=== PATIENT | male | born 1960 | race Caucasian/White ===

== ENCOUNTER 2019-01-30 02:24 | Inpatient (IN) | payer OTHER ==
[~2019-01-30] VITALS: Ht 162.6 cm; Wt 92.6 kg
[2019-01-30] MEDS ORDERED: LACTULOSE 20 GM/30 ML SOLUTION. PO ONE (02:45)
[2019-01-30 02:51] LABS: BASO % 1 % (0-3); EOS # 0.1 x10^3/uL (0.0-0.7); EOS % 1 % (0-3); HEMATOCRIT 35.3 % (39.0-53.0); HEMOGLOBIN 11.7 g/dL (13.0-17.5); LYMPH # 1.5 x10^3/uL (1.0-4.8); LYMPH % 33 % (24-48); MEAN CORPUSCULAR HEMOGLOBIN 33 pg (25-35); MEAN CORPUSCULAR HGB CONC 33 g/dL (31-37); MEAN CORPUSCULAR VOLUME 99 fL (79-100); MONO # 0.5 x10^3/uL (0.0-1.1); MONO % 12 % (0-9); NEUT # 2.4 x10^3uL (1.8-7.7); NEUT % 53 % (31-73); PLATELET COUNT 85 x10^3/uL (140-400); RED BLOOD COUNT 3.58 x10^6/uL (4.30-5.70); RED CELL DISTRIBUTION WIDTH 15.5 % (11.5-14.5); WHITE BLOOD COUNT 4.6 x10^3/uL (4.0-11.0)
[2019-01-30 02:58] LABS: CREATININE 0.9 mg/dL (0.7-1.3); GFR 87.3; POTASSIUM 4.1 mmol/L (3.5-5.1)
[2019-01-30 03:01] LABS: PROTHROMBIN TIME PATIENT 18.3 SEC (11.7-14.0)
[2019-01-30 03:03] LABS: ALBUMIN 2.6 g/dL (3.4-5.0); ALBUMIN/GLOBULIN RATIO 0.6 (1.0-1.7); MAGNESIUM 1.9 mg/dL (1.8-2.4); TOTAL BILIRUBIN 2.7 mg/dL (0.2-1.0); TOTAL PROTEIN 7.2 g/dL (6.4-8.2)
--- NOTE | 2019-01-30 04:39 | PHYS DOC ---
Past Medical History Past Medical History: Alcoholism, Unknown, Other Additional Past Medical Histor: liver disease, hep c, ESLD, variceal bleed Additional Past Surgical Histo: unable to assess Alcohol Use: Sober Social History Narrative: unknown Adult General Chief Complaint Chief Complaint: ALTERED MENTAL STATUS [facility] HPI Patient is a 58-year-old male who presents from halfway with report of altered mental status. Blood work had been sent to [facility] and patient's ammonia level found to be 132. Unable to obtain additional history due to patient having altered mental status. Review of Systems Review of Systems Constitutional: No reported fever or chills [] Cardiovascular: No additional information not addressed in HPI [] GI: No reported vomiting or diarrhea [] Neurologic: Positive mental status changes [] Unable to fully assess review of systems due to altered mental status. Current Medications Current Medications Current Medications Medications (Trade) Dose Ordered Sig/Walter Start Time Stop Time Status Last Admin Dose Admin Lactulose (Lactulose) 30 gm 1X ONCE 01/30/19 02:45 01/30/19 02:46 DC 01/30/19 02:58 30 GM Lorazepam (Ativan) 2 mg 1X ONCE 01/30/19 03:15 01/30/19 03:16 DC 01/30/19 03:33 2 MG Allergies Allergies Allergies Coded Allergies Type Severity Reaction Last Updated Verified No Known Drug Allergies 01/30/19 No Physical Exam Physical Exam Constitutional: Well developed, well nourished, no acute distress, non-toxic appearance. [] HENT: Normocephalic, atraumatic, bilateral external ears normal, oropharynx moist, no oral exudates, nose normal. [] Eyes: PERRLA, EOMI, conjunctiva normal, no discharge. [] Neck: Normal range of motion, no tenderness, supple, no stridor. [] Cardiovascular:Heart rate regular rhythm, no murmur [] Lungs & Thorax: Bilateral breath sounds clear to auscultation [] Abdomen: Bowel sounds normal, soft, no tenderness, no masses, no pulsatile masses. [] Skin: Warm, dry, no erythema, no rash. [] Back: No tenderness, no CVA tenderness. [] Extremities: No tenderness, no cyanosis, no clubbing, ROM intact, no edema. [] Neurologic: Alert and oriented X 3, normal motor function, normal sensory function, no focal deficits noted. [] Psychologic: Affect normal, judgement normal, mood normal. [] Current Patient Data Vital Signs Vital Signs Date Time Temp Pulse Resp B/P (MAP) Pulse Ox O2 Delivery O2 Flow Rate FiO2 01/30/19 02:25 98.1 90 24 127/80 (96) 100 Room Air 98.1 Lab Values Laboratory Tests Test 01/30/19 02:30 White Blood Count 4.6 x10^3/uL (4.0-11.0) Red Blood Count 3.58 x10^6/uL (4.30-5.70) L Hemoglobin 11.7 g/dL (13.0-17.5) L Hematocrit 35.3 % (39.0-53.0) L Mean Corpuscular Volume 99 fL (79-100) Mean Corpuscular Hemoglobin 33 pg (25-35) Mean Corpuscular Hemoglobin Concent 33 g/dL (31-37) Red Cell Distribution Width 15.5 % (11.5-14.5) H Platelet Count 85 x10^3/uL (140-400) L Neutrophils (%) (Auto) 53 % (31-73) Lymphocytes (%) (Auto) 33 % (24-48) Monocytes (%) (Auto) 12 % (0-9) H Eosinophils (%) (Auto) 1 % (0-3) Basophils (%) (Auto) 1 % (0-3) Neutrophils # (Auto) 2.4 x10^3uL (1.8-7.7) Lymphocytes # (Auto) 1.5 x10^3/uL (1.0-4.8) Monocytes # (Auto) 0.5 x10^3/uL (0.0-1.1) Eosinophils # (Auto) 0.1 x10^3/uL (0.0-0.7) Basophils # (Auto) 0.0 x10^3/uL (0.0-0.2) Prothrombin Time 18.3 SEC (11.7-14.0) H Prothrombin Time INR 1.6 (0.8-1.1) H Sodium Level 147 mmol/L (136-145) H Potassium Level 4.1 mmol/L (3.5-5.1) Chloride Level 111 mmol/L (98-107) H Carbon Dioxide Level 27 mmol/L (21-32) Anion Gap 9 (6-14) Blood Urea Nitrogen 11 mg/dL (8-26) Creatinine 0.9 mg/dL (0.7-1.3) Estimated GFR (Cockcroft-Gault) 87.3 BUN/Creatinine Ratio 12 (6-20) Glucose Level 103 mg/dL (70-99) H Calcium Level 9.0 mg/dL (8.5-10.1) Magnesium Level 1.9 mg/dL (1.8-2.4) Total Bilirubin 2.7 mg/dL (0.2-1.0) H Aspartate Amino Transferase (AST) 64 U/L (15-37) H Alanine Aminotransferase (ALT) 54 U/L (16-63) Alkaline Phosphatase 118 U/L (46-116) H Ammonia 122 mcmol/L (11-34) H Troponin I Quantitative < 0.017 ng/mL (0.000-0.055) KU-Sul-Z-Type Natriuretic Peptide 35 pg/mL (0-124) Total Protein 7.2 g/dL (6.4-8.2) Albumin 2.6 g/dL (3.4-5.0) L Albumin/Globulin Ratio 0.6 (1.0-1.7) L Laboratory Tests 01/30/19 02:30 Laboratory Tests 01/30/19 02:30 EKG EKG [] Radiology/Procedures Radiology/Procedures [] Course & Med Decision Making Course & Med Decision Making Pertinent Labs and Imaging studies reviewed. (See chart for details) [] Dragon Disclaimer Dragon Disclaimer This electronic medical record was generated, in whole or in part, using a voice recognition dictation system. Departure Departure Impression: Primary Impression: Hepatic encephalopathy Disposition: ADMITTED INPATIENT Admitting Physician: Vipin Trent Condition: GOOD Referrals: NO PCP (PCP) MATT BARBOZA Jr. DO Jan 30, 2019 04:39
[2019-01-30] MEDS ORDERED: ONDANSETRON PF 4 MG/2 ML VIAL. IV PRN (04:45)
[2019-01-30] MEDS: IV NORMAL SALINE 1000ML BAG 1,000 ML IV SCH ×4 (06:14→23:24)
--- NOTE | 2019-01-30 06:26 | EKG ---
[facility] [address] [place] [address] Test Date: 2019-01-30 Test Time: 04:55:45 Pat Name: KISHAN CRUM Department: Room: [facility] Gender: M Brokerage Coordinator: : 1960 Requested By: MATT BARBOZA Order Number: [id number] Reading MD: Adrian Sidhu MD Measurements Intervals [place] Rate: 82 P: 54 KS: 132 QRS: 34 QRSD: 84 T: 39 QT: 386 QTc: 454 Interpretive Statements SINUS RHYTHM Electronically Signed On 01-30-2019 17:31:54 CDT by Adrian Sidhu MD
[2019-01-30 07:00] VITALS: BP 120/94
[2019-01-30] MEDS ORDERED: PANT20TA2 PO (07:38)
[2019-01-30] MEDS ORDERED: LACT20SO PO (07:38)
[2019-01-30] MEDS ORDERED: SPIR50TA4 PO (07:38)
[2019-01-30] MEDS ORDERED: FURO40TA4 PO (07:38)
--- NOTE | 2019-01-30 08:00 | NUR ---
The patient, KISHAN CRUM, 58 y/o, M admitted from [facility] due to hepatic encephalopathy. Patient is drowsy, responds to name when called. He is accompanied by 2 guards from the facility. youth nutritional monitor placed; we will continue to monitor.
[2019-01-30] MEDS ORDERED: LACTULOSE for RECTAL 200 GM/300 ML SOLUTION. PR PRN (08:30)
--- NOTE | 2019-01-30 08:34 | PDOC1 ---
History and Physical Date of Admission Date of Admission DATE: 01/30/19 TIME: 08:33 Identification/Chief Complaint Chief Complaint AMS Source Source: Caregiver, Chart review, Patient History of Present Illness History of Present Illness 58-year-old male w/ PMHx cirrhosis - Hep C and alcohol, varices (banding 2007), seizure, depression, s/p TIPS, appendectomy, inguinal hernia hernia who presents from residential with report of altered mental status. Blood work had been sent to [facility] and patient's ammonia level found to be 132. Unable to obtain additional history due to patient having altered mental status. Reviewed [facility] records - also w/ recent lethargy and falls. H/o cirrhosis 2 /2 alcohol and Hep C (genotype 3), s/p TIPS. Past Medical History Cardiovascular: No pertinent hx Pulmonary: No pertinent hx CENTRAL NERVOUS SYSTEM: Carpal Tunnel Syndrome GI: Gastritis Heme/Onc: No pertinent hx Hepatobiliary: Cirrhosis, Hep A/B/C (C) Psych: Addictions Rheumatologic: No pertinent hx Infectious disease: No pertinent hx ENT: No pertinent hx Renal/: No pertinent hx Endocrine: No pertinent hx Dermatology: No pertinent hx Past Surgical History Past Surgical History: Other (TIPS) Family History Family History: Alcohol Abuse Social History Smoke: <1 pack per day ALCOHOL: other (QUIT) Drugs: Marijuana, Crystal meth Current Problem List Problem List Problems Medical Problems: (1) Hepatic encephalopathy Status: Acute Current Medications Current Medications Current Medications Lactulose (Lactulose) 30 gm 1X ONCE PO Last administered on 01/30/19at 02:58; Start 01/30/19 at 02:45; Stop 01/30/19 at 02:46; Status DC Lorazepam (Ativan) 2 mg 1X ONCE IV Last administered on 01/30/19at 03:33; Start 01/30/19 at 03:15; Stop 01/30/19 at 03:16; Status DC Ondansetron HCl (Zofran) 4 mg PRN Q8HRS PRN IV NAUSEA/VOMITING; Start 01/30/19 at 04:45; Stop 01/31/19 at 04:44 Sodium Chloride 1,000 ml @ 125 mls/hr Q8H IV Last administered on 01/30/19at 06 :14; Start 01/30/19 at 04:45; Stop 01/31/19 at 04:44 Furosemide (Lasix) 40 mg DAILY PO ; Start 01/30/19 at 09:00 Lactulose (Lactulose) 30 gm TID PO ; Start 01/30/19 at 09:00 Pantoprazole Sodium (Protonix) 40 mg DAILYAC PO ; Start 01/30/19 at 09:00 Spironolactone (Aldactone) 50 mg DAILY PO ; Start 01/30/19 at 09:00 Lactulose (LACTULOSE 300ML for RECTAL) 200 gm PRN Q6HRS PA ; Start 01/30/19 at 08:30; Status UNV Active Scripts Active Reported Spironolactone 50 Mg Tablet 1 Tab PO DAILY Protonix (Pantoprazole Sodium) 20 Mg Tablet.dr 1 Tab PO DAILY Lactulose 20 Gm/30 Ml Solution 30 Gm PO TID Furosemide 40 Mg Tablet 1 Tab PO DAILY Allergies Allergies: Coded Allergies: No Known Drug Allergies (Unverified , 01/30/19) ROS Review of System Unable to obtain ROS due to encephalopathy Physical Exam General: moderate distress HEENT: Atraumatic, PERRLA, EOMI, Mucous membr. moist/pink Lungs: Clear to auscultation, Normal air movement Heart: S1S2, RRR, no gallops, no murmurs Abdomen: Normal bowel sounds, Soft, No tenderness, No hepatosplenomegaly, No masses Rectal Exam: not examined Extremities: No clubbing, No cyanosis, No edema, Normal pulses, No tenderness/ swelling Skin: No rashes, No breakdown, No significant lesion Neuro: Other (moving all 4 limbs) Vitals Vitals Vital Signs Date Time Temp Pulse Resp B/P (MAP) Pulse Ox O2 Delivery O2 Flow Rate FiO2 01/30/19 07:00 98.0 77 16 120/94 (103) 100 Room Air 98.0 Labs Labs Laboratory Tests Test 01/30/19 02:30 White Blood Count 4.6 x10^3/uL (4.0-11.0) Red Blood Count 3.58 x10^6/uL (4.30-5.70) Hemoglobin 11.7 g/dL (13.0-17.5) Hematocrit 35.3 % (39.0-53.0) Mean Corpuscular Volume 99 fL (79-100) Mean Corpuscular Hemoglobin 33 pg (25-35) Mean Corpuscular Hemoglobin Concent 33 g/dL (31-37) Red Cell Distribution Width 15.5 % (11.5-14.5) Platelet Count 85 x10^3/uL (140-400) Neutrophils (%) (Auto) 53 % (31-73) Lymphocytes (%) (Auto) 33 % (24-48) Monocytes (%) (Auto) 12 % (0-9) Eosinophils (%) (Auto) 1 % (0-3) Basophils (%) (Auto) 1 % (0-3) Neutrophils # (Auto) 2.4 x10^3uL (1.8-7.7) Lymphocytes # (Auto) 1.5 x10^3/uL (1.0-4.8) Monocytes # (Auto) 0.5 x10^3/uL (0.0-1.1) Eosinophils # (Auto) 0.1 x10^3/uL (0.0-0.7) Basophils # (Auto) 0.0 x10^3/uL (0.0-0.2) Prothrombin Time 18.3 SEC (11.7-14.0) Prothromb Time International Ratio 1.6 (0.8-1.1) Sodium Level 147 mmol/L (136-145) Potassium Level 4.1 mmol/L (3.5-5.1) Chloride Level 111 mmol/L (98-107) Carbon Dioxide Level 27 mmol/L (21-32) Anion Gap 9 (6-14) Blood Urea Nitrogen 11 mg/dL (8-26) Creatinine 0.9 mg/dL (0.7-1.3) Estimated GFR (Cockcroft-Gault) 87.3 BUN/Creatinine Ratio 12 (6-20) Glucose Level 103 mg/dL (70-99) Calcium Level 9.0 mg/dL (8.5-10.1) Magnesium Level 1.9 mg/dL (1.8-2.4) Total Bilirubin 2.7 mg/dL (0.2-1.0) Aspartate Amino Transf (AST/SGOT) 64 U/L (15-37) Alanine Aminotransferase (ALT/SGPT) 54 U/L (16-63) Alkaline Phosphatase 118 U/L (46-116) Ammonia 122 mcmol/L (11-34) Troponin I Quantitative < 0.017 ng/mL (0.000-0.055) QA-Tpj-R-Type Natriuretic Peptide 35 pg/mL (0-124) Total Protein 7.2 g/dL (6.4-8.2) Albumin 2.6 g/dL (3.4-5.0) Albumin/Globulin Ratio 0.6 (1.0-1.7) Laboratory Tests Test 01/30/19 02:30 White Blood Count 4.6 x10^3/uL (4.0-11.0) Red Blood Count 3.58 x10^6/uL (4.30-5.70) Hemoglobin 11.7 g/dL (13.0-17.5) Hematocrit 35.3 % (39.0-53.0) Mean Corpuscular Volume 99 fL (79-100) Mean Corpuscular Hemoglobin 33 pg (25-35) Mean Corpuscular Hemoglobin Concent 33 g/dL (31-37) Red Cell Distribution Width 15.5 % (11.5-14.5) Platelet Count 85 x10^3/uL (140-400) Neutrophils (%) (Auto) 53 % (31-73) Lymphocytes (%) (Auto) 33 % (24-48) Monocytes (%) (Auto) 12 % (0-9) Eosinophils (%) (Auto) 1 % (0-3) Basophils (%) (Auto) 1 % (0-3) Neutrophils # (Auto) 2.4 x10^3uL (1.8-7.7) Lymphocytes # (Auto) 1.5 x10^3/uL (1.0-4.8) Monocytes # (Auto) 0.5 x10^3/uL (0.0-1.1) Eosinophils # (Auto) 0.1 x10^3/uL (0.0-0.7) Basophils # (Auto) 0.0 x10^3/uL (0.0-0.2) Prothrombin Time 18.3 SEC (11.7-14.0) Prothromb Time International Ratio 1.6 (0.8-1.1) Sodium Level 147 mmol/L (136-145) Potassium Level 4.1 mmol/L (3.5-5.1) Chloride Level 111 mmol/L (98-107) Carbon Dioxide Level 27 mmol/L (21-32) Anion Gap 9 (6-14) Blood Urea Nitrogen 11 mg/dL (8-26) Creatinine 0.9 mg/dL (0.7-1.3) Estimated GFR (Cockcroft-Gault) 87.3 BUN/Creatinine Ratio 12 (6-20) Glucose Level 103 mg/dL (70-99) Calcium Level 9.0 mg/dL (8.5-10.1) Magnesium Level 1.9 mg/dL (1.8-2.4) Total Bilirubin 2.7 mg/dL (0.2-1.0) Aspartate Amino Transf (AST/SGOT) 64 U/L (15-37) Alanine Aminotransferase (ALT/SGPT) 54 U/L (16-63) Alkaline Phosphatase 118 U/L (46-116) Ammonia 122 mcmol/L (11-34) Troponin I Quantitative < 0.017 ng/mL (0.000-0.055) BB-Mcv-F-Type Natriuretic Peptide 35 pg/mL (0-124) Total Protein 7.2 g/dL (6.4-8.2) Albumin 2.6 g/dL (3.4-5.0) Albumin/Globulin Ratio 0.6 (1.0-1.7) VTE Prophylaxis Ordered VTE Prophylaxis Devices: Yes VTE Pharmacological Prophylaxi: No Assessment/Plan Assessment/Plan A/P: Acute Hepatic encephalopathy - likely from xifaxin loss vs a host of other possibilities. Consult GI. Lactulose TID + xifaxin. Lactulose enemas Cirrhosis (alcohol, Hep C) s/p TIPS - should evaluated TIPS w/ ultrasound. May need variceal staging again soon Anemia - 2/2 liver disease. Monitor thrombocytopenia - monitor, will use SCDs as ppx Coagulopathy - from hep C cirrhosis, monitor FEN - NPO, except meds PPX - SCDs FULL CODE Inpatient for hepatic encephalopathy, will likely be at least 2 midnights. DOLLY SIMENTAL MD Jan 30, 2019 08:34
[2019-01-30] MEDS: PANTOPRAZOLE 40 MG TABLET.DR. PO SCH (10:49)
[2019-01-30] MEDS: FUROSEMIDE 40 MG TABLET. PO SCH (10:49)
[2019-01-30] MEDS: SPIRONOLACTONE 25 MG TABLET PO SCH (10:55)
[2019-01-30] MEDS: LACTULOSE 20 GM/30 ML SOLUTION. PO SCH ×3 (10:55→20:14)
[2019-01-30 11:00] VITALS: BP 141/84
--- NOTE | 2019-01-30 13:22 | NUR ---
Patient had a 6 beat VTAC on the monitor at 1259, no chest pain, electrolytes within normal limits,paged Dr Carlos at 1300. This nurse iwas nstructed to monitor patient.
--- NOTE | 2019-01-30 14:47 | PDOC2 ---
GI CONSULT Reason For Consult: Hepatic encephalopathy HPI: HPI: 58 y/o inmate w/ AMS. Reviewed [facility] records - also w/ recent lethargy and falls. H/o cirrhosis 2/2 alcohol and Hep C (genotype 3, failed Interferon treatment, deemed not a transplant candidate due to ongoing substance abuse), s/ p TIPS. On furosemide, spironolactone, pantoprazole, and lactulose (and previously Xifaxan). Had labs through [facility] - found w/ elevated ammonia (122 here ). No meaningful history from pt this afternoon - guards report he has been agitated and his urine "smelled strong." Was given lactulose here and has stooled since we have seen. PMH: PMH: cirrhosis - Hep C and alcohol, varices (banding 2007), seizure, depression TIPS, appendectomy, inguinal hernia hernia FH: Family History: Other (unable to obtain) Social History: Smoke: <1 pack per day ALCOHOL: other Drugs: Crystal meth ROS: Unable to obtain. Vitals: Vitals: Vital Signs Date Time Temp Pulse Resp B/P (MAP) Pulse Ox O2 Delivery O2 Flow Rate FiO2 01/30/19 11:00 98.1 75 16 141/84 (103) 100 Room Air 98.1 Labs: Labs: Laboratory Tests Test 01/30/19 02:30 White Blood Count 4.6 x10^3/uL (4.0-11.0) Red Blood Count 3.58 x10^6/uL (4.30-5.70) Hemoglobin 11.7 g/dL (13.0-17.5) Hematocrit 35.3 % (39.0-53.0) Mean Corpuscular Volume 99 fL (79-100) Mean Corpuscular Hemoglobin 33 pg (25-35) Mean Corpuscular Hemoglobin Concent 33 g/dL (31-37) Red Cell Distribution Width 15.5 % (11.5-14.5) Platelet Count 85 x10^3/uL (140-400) Neutrophils (%) (Auto) 53 % (31-73) Lymphocytes (%) (Auto) 33 % (24-48) Monocytes (%) (Auto) 12 % (0-9) Eosinophils (%) (Auto) 1 % (0-3) Basophils (%) (Auto) 1 % (0-3) Neutrophils # (Auto) 2.4 x10^3uL (1.8-7.7) Lymphocytes # (Auto) 1.5 x10^3/uL (1.0-4.8) Monocytes # (Auto) 0.5 x10^3/uL (0.0-1.1) Eosinophils # (Auto) 0.1 x10^3/uL (0.0-0.7) Basophils # (Auto) 0.0 x10^3/uL (0.0-0.2) Prothrombin Time 18.3 SEC (11.7-14.0) Prothromb Time International Ratio 1.6 (0.8-1.1) Sodium Level 147 mmol/L (136-145) Potassium Level 4.1 mmol/L (3.5-5.1) Chloride Level 111 mmol/L (98-107) Carbon Dioxide Level 27 mmol/L (21-32) Anion Gap 9 (6-14) Blood Urea Nitrogen 11 mg/dL (8-26) Creatinine 0.9 mg/dL (0.7-1.3) Estimated GFR (Cockcroft-Gault) 87.3 BUN/Creatinine Ratio 12 (6-20) Glucose Level 103 mg/dL (70-99) Calcium Level 9.0 mg/dL (8.5-10.1) Magnesium Level 1.9 mg/dL (1.8-2.4) Total Bilirubin 2.7 mg/dL (0.2-1.0) Aspartate Amino Transf (AST/SGOT) 64 U/L (15-37) Alanine Aminotransferase (ALT/SGPT) 54 U/L (16-63) Alkaline Phosphatase 118 U/L (46-116) Ammonia 122 mcmol/L (11-34) Troponin I Quantitative < 0.017 ng/mL (0.000-0.055) KQ-Nbe-H-Type Natriuretic Peptide 35 pg/mL (0-124) Total Protein 7.2 g/dL (6.4-8.2) Albumin 2.6 g/dL (3.4-5.0) Albumin/Globulin Ratio 0.6 (1.0-1.7) Allergies: Coded Allergies: No Known Drug Allergies (Unverified , 01/30/19) Medications: Current Medications Medications (Trade) Dose Ordered Sig/Walter Route PRN Reason Start Time Stop Time Status Last Admin Dose Admin Lactulose (Lactulose) 30 gm 1X ONCE PO 01/30/19 02:45 01/30/19 02:46 DC 01/30/19 02:58 Lorazepam (Ativan) 2 mg 1X ONCE IV 01/30/19 03:15 01/30/19 03:16 DC 01/30/19 03:33 Sodium Chloride 1,000 ml @ 125 mls/hr Q8H IV 01/30/19 04:45 01/31/19 04:44 01/30/19 06:14 Furosemide (Lasix) 40 mg DAILY PO 01/30/19 09:00 01/30/19 10:49 Lactulose (Lactulose) 30 gm TID PO 01/30/19 09:00 01/30/19 10:55 Pantoprazole Sodium (Protonix) 40 mg DAILYAC PO 01/30/19 09:00 01/30/19 10:49 Spironolactone (Aldactone) 50 mg DAILY PO 01/30/19 09:00 01/30/19 10:55 PE: GEN: seems uncomfortable - holding head, continually moaning HEENT: Atraumatic, PERRL LUNGS: CTAB HEART: RRR ABD: NABS, S/ND/NT EXTREMITY: No edema SKIN: stasis dermatitis BLE NEURO/PSYCH: confused, hyperreflexive A/P: A/P: Hepatic encephalopathy Cirrhosis (alcohol, Hep C) s/p TIPS Anemia, thrombocytopenia, coagulopathy -- ?infection ?tumor Agree w/ lactulose. Check UA and AFP. Check patency of TIPS w/ doppler, also CT C/A/P. GILL RECIO Jan 30, 2019 14:47
[2019-01-30 15:00] VITALS: BP 139/70
--- NOTE | 2019-01-30 16:03 | RAD ---
PQRS Compliance statement: One or more of the following individualized dose reduction techniques were utilized for this examination: 1. Automated exposure control. 2. Adjustment of the mA and/or kV according to patient size. 3. Use of iterative reconstruction technique. Indication:CIRRHOSIS ABD PAIN NO CONTRAST NO PREV TECHNIQUE: CT chest, abdomen and pelviswithout IV contrast with multiplanar reformats. COMPARISON: None FINDINGS: Limited exam due to lack of IV contrast. Heart is normal in size. No pericardial or pleural effusion. Bilateral gynecomastia. No enlarged axillary or mediastinal adenopathy. Evaluation of hilar lymphadenopathy is limited due to lack of IV contrast. Lungs are clear. Chronic fracture deformity seen of the right clavicle. No suspicious bony lesions in the chest. TIPS procedure noted. Morphologic changes of cirrhosis. Spleen is mildly enlarged measuring 16 cm. Noncontrast appearance of the pancreas, adrenals and kidneys within normal limits. Gallstones noted. No pericholecystic fluid. No enlarged retroperitoneal adenopathy. No free pelvic fluid or ascites. Large amount of stool is seen in the colon. The prostate and seminal vesicles show no large mass. Urinary bladder demonstrate no radiopaque stones. No pneumoperitoneum. Multiple perigastric and perisplenic varices are seen. No suspicious bony lesion. Mild anterior wedge-shaped compression deformity seen of the L1 vertebral body most likely chronic. IMPRESSION: Limited exam due to lack of IV contrast. 1. Cirrhosis with evidence of portal venous hypertension. No ascites. 2. Cholelithiasis without imaging evidence of acute cholecystitis. Electronically signed by: Massimo Dbuon DO (01/30/2019 4:00 PM) [facility]
--- NOTE | 2019-01-30 19:29 | RAD ---
LIMITED ABDOMINAL DOPPLER History: Hepatitis C, hepatic encephalopathy Comparison: None. Findings: Multiple grayscale, color, and duplex spectral analysis waveform images directed toward evaluation of TIPS are submitted. Incidental note is made of cholelithiasis. TIPS is patent, velocity of the mid segment about 145 cm/s, 126 cm/s at the portal end and 193 cm/s hepatic end. There is hepatopetal flow present. Main portal vein velocity 115 cm/s. Hepatic artery is patent, velocity 120 cm/s. Main portal vein measured about 1.4 cm and caliber. Left portal vein velocity 47 cm/s. Right portal vein velocity was 61 cm/s. Hepatic veins are patent, hepatofugal flow. No ascites is demonstrated. Impression: 1. TIPS is patent. There is hepatopetal flow. No ascites is demonstrated. Electronically signed by: Aldair Ferro MD (01/30/2019 7:26 PM) [facility]
[2019-01-30 19:53] VITALS: BP 133/80
[2019-01-30 23:00] VITALS: BP 118/58
[2019-01-30] MEDS: traMADol 50 MG TABLET PO PRN (23:23)
[2019-01-31 03:45] VITALS: BP 92/59
[2019-01-31 05:39] LABS: BASO % 1 % (0-3); EOS # 0.1 x10^3/uL (0.0-0.7); EOS % 4 % (0-3); HEMATOCRIT 31.7 % (39.0-53.0); HEMOGLOBIN 11.2 g/dL (13.0-17.5); LYMPH # 1.9 x10^3/uL (1.0-4.8); LYMPH % 53 % (24-48); MEAN CORPUSCULAR HEMOGLOBIN 34 pg (25-35); MEAN CORPUSCULAR HGB CONC 35 g/dL (31-37); MEAN CORPUSCULAR VOLUME 98 fL (79-100); MONO # 0.4 x10^3/uL (0.0-1.1); MONO % 11 % (0-9); NEUT # 1.1 x10^3uL (1.8-7.7); NEUT % 31 % (31-73); PLATELET COUNT 74 x10^3/uL (140-400); RED BLOOD COUNT 3.24 x10^6/uL (4.30-5.70); RED CELL DISTRIBUTION WIDTH 15.1 % (11.5-14.5); WHITE BLOOD COUNT 3.6 x10^3/uL (4.0-11.0)
[2019-01-31 05:45] LABS: PROTHROMBIN TIME PATIENT 20.8 SEC (11.7-14.0)
[2019-01-31 05:58] LABS: ALBUMIN 1.9 g/dL (3.4-5.0); ALBUMIN/GLOBULIN RATIO 0.5 (1.0-1.7); CALCIUM 7.9 mg/dL (8.5-10.1); CREATININE 0.6 mg/dL (0.7-1.3); TOTAL PROTEIN 5.7 g/dL (6.4-8.2)
[2019-01-31 05:59] LABS: GFR 139.4; POTASSIUM 3.5 mmol/L (3.5-5.1); TOTAL BILIRUBIN 2.6 mg/dL (0.2-1.0)
[2019-01-31 07:00] VITALS: BP 106/54
[2019-01-31] MEDS: IV NORMAL SALINE 1000ML BAG 1,000 ML IV SCH (07:30)
[2019-01-31] MEDS: SPIRONOLACTONE 25 MG TABLET PO SCH (09:54)
[2019-01-31] MEDS: FUROSEMIDE 40 MG TABLET. PO SCH (09:54)
[2019-01-31] MEDS: PANTOPRAZOLE 40 MG TABLET.DR. PO SCH (09:55)
[2019-01-31] MEDS: traMADol 50 MG TABLET PO PRN (09:55)
[2019-01-31] MEDS: LACTULOSE 20 GM/30 ML SOLUTION. PO SCH ×3 (09:55→20:19)
[2019-01-31] MEDS ORDERED: LACTULOSE 20 GM/30 ML SOLUTION. PO SCH (10:00)
[2019-01-31 10:56] VITALS: BP 106/61
--- NOTE | 2019-01-31 12:48 | PDOC ---
PROGRESS NOTES Chief Complaint Chief Complaint Acute Hepatic encephalopathy -TIPS patent Advanced liver cirrhosis History hep C status post treatment-Active again?-Follows with [facility] elevated Ammonia, 122 Anemia - 2/2 liver disease. 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, Inmate InciDental cholelithiasis History of Present Illness History of Present Illness He is back to baseline terms of mentation but still slow. Oriented to self and place and a little bit to time Guards at bedside Asks about solid food Ammonia elevated 122 He claims he gets lactulose and other meds in [facility] GI note reviewed, restarted on rifaximin AFP still pending Ultrasound shows patent TIPS Incidental cholelithiasis-I have provided copies of his ultrasound I did touch base in terms of prognosis poor, recurrences of confusion etc. He is looking at getting out of [facility] March 02, 2019, and follows with [facility] for hep C treatment Plan: Continue lactulose, recheck ammonia tomorrow Follow-up AFP Upgrade to GI soft Follow-up [facility] for hep C treatment We'll DC back to [facility] once we have AFP levels and ammonia better and is back to baseline Vitals Vitals Vital Signs Date Time Temp Pulse Resp B/P (MAP) Pulse Ox O2 Delivery O2 Flow Rate FiO2 01/31/19 10:56 97.8 61 20 106/61 (76) 97 Room Air 97.8 Physical Exam General: Oriented X3, Cooperative, moderate distress, Other (slow to speech) Heart: Regular rate, Normal S1, Normal S2 Lungs: Clear Abdomen: Normal bowel sounds, Soft, No tenderness, No hepatosplenomegaly, No masses Extremities: No clubbing, No cyanosis, No edema, Normal pulses, No tenderness/ swelling Skin: No rashes, No breakdown, No significant lesion Labs LABS Laboratory Tests Test 01/31/19 05:17 White Blood Count 3.6 x10^3/uL (4.0-11.0) Red Blood Count 3.24 x10^6/uL (4.30-5.70) Hemoglobin 11.2 g/dL (13.0-17.5) Hematocrit 31.7 % (39.0-53.0) Mean Corpuscular Volume 98 fL (79-100) Mean Corpuscular Hemoglobin 34 pg (25-35) Mean Corpuscular Hemoglobin Concent 35 g/dL (31-37) Red Cell Distribution Width 15.1 % (11.5-14.5) Platelet Count 74 x10^3/uL (140-400) Neutrophils (%) (Auto) 31 % (31-73) Lymphocytes (%) (Auto) 53 % (24-48) Monocytes (%) (Auto) 11 % (0-9) Eosinophils (%) (Auto) 4 % (0-3) Basophils (%) (Auto) 1 % (0-3) Neutrophils # (Auto) 1.1 x10^3uL (1.8-7.7) Lymphocytes # (Auto) 1.9 x10^3/uL (1.0-4.8) Monocytes # (Auto) 0.4 x10^3/uL (0.0-1.1) Eosinophils # (Auto) 0.1 x10^3/uL (0.0-0.7) Basophils # (Auto) 0.0 x10^3/uL (0.0-0.2) Prothrombin Time 20.8 SEC (11.7-14.0) Prothromb Time International Ratio 1.8 (0.8-1.1) Sodium Level 143 mmol/L (136-145) Potassium Level 3.5 mmol/L (3.5-5.1) Chloride Level 112 mmol/L (98-107) Carbon Dioxide Level 22 mmol/L (21-32) Anion Gap 9 (6-14) Blood Urea Nitrogen 8 mg/dL (8-26) Creatinine 0.6 mg/dL (0.7-1.3) Estimated GFR (Cockcroft-Gault) 139.4 BUN/Creatinine Ratio 13 (6-20) Glucose Level 84 mg/dL (70-99) Calcium Level 7.9 mg/dL (8.5-10.1) Total Bilirubin 2.6 mg/dL (0.2-1.0) Aspartate Amino Transf (AST/SGOT) 47 U/L (15-37) Alanine Aminotransferase (ALT/SGPT) 40 U/L (16-63) Alkaline Phosphatase 81 U/L (46-116) Total Protein 5.7 g/dL (6.4-8.2) Albumin 1.9 g/dL (3.4-5.0) Albumin/Globulin Ratio 0.5 (1.0-1.7) Review of Systems Review of Systems A 14 point ROS was completed with the following noted as positive: Other systems reviewed and negative. \CONSTITUTIONAL: No fever or chills EYES: No recent changes SKIN: No rash or itching CARDIOVASCULAR: No chest pain, syncope, palpitations, or edema RESPIRATORY: No SOB or cough GASTROINTESTINAL: No nausea, vomiting or abdominal pain NEUROLOGICAL: No headaches or weakness ENDOCRINE: No cold or heat intolerance GENITOURINARY: No urgency or frequency of urination MUSCULOSKELETAL: No back pain or joint pain LYMPHATICS: No enlarged lymph nodes PSYCHIATRIC: No anxiety or depression Assessment and Plan Assessmemt and Plan Problems Medical Problems: (1) Hepatic encephalopathy Status: Acute Comment Review of Relevant I have reviewed the following items kerwin (where applicable) has been applied. Labs Laboratory Tests Test 01/30/19 02:30 01/30/19 06:30 01/31/19 05:17 White Blood Count 4.6 x10^3/uL (4.0-11.0) 3.6 x10^3/uL (4.0-11.0) Red Blood Count 3.58 x10^6/uL (4.30-5.70) 3.24 x10^6/uL (4.30-5.70) Hemoglobin 11.7 g/dL (13.0-17.5) 11.2 g/dL (13.0-17.5) Hematocrit 35.3 % (39.0-53.0) 31.7 % (39.0-53.0) Mean Corpuscular Volume 99 fL (79-100) 98 fL (79-100) Mean Corpuscular Hemoglobin 33 pg (25-35) 34 pg (25-35) Mean Corpuscular Hemoglobin Concent 33 g/dL (31-37) 35 g/dL (31-37) Red Cell Distribution Width 15.5 % (11.5-14.5) 15.1 % (11.5-14.5) Platelet Count 85 x10^3/uL (140-400) 74 x10^3/uL (140-400) Neutrophils (%) (Auto) 53 % (31-73) 31 % (31-73) Lymphocytes (%) (Auto) 33 % (24-48) 53 % (24-48) Monocytes (%) (Auto) 12 % (0-9) 11 % (0-9) Eosinophils (%) (Auto) 1 % (0-3) 4 % (0-3) Basophils (%) (Auto) 1 % (0-3) 1 % (0-3) Neutrophils # (Auto) 2.4 x10^3uL (1.8-7.7) 1.1 x10^3uL (1.8-7.7) Lymphocytes # (Auto) 1.5 x10^3/uL (1.0-4.8) 1.9 x10^3/uL (1.0-4.8) Monocytes # (Auto) 0.5 x10^3/uL (0.0-1.1) 0.4 x10^3/uL (0.0-1.1) Eosinophils # (Auto) 0.1 x10^3/uL (0.0-0.7) 0.1 x10^3/uL (0.0-0.7) Basophils # (Auto) 0.0 x10^3/uL (0.0-0.2) 0.0 x10^3/uL (0.0-0.2) Prothrombin Time 18.3 SEC (11.7-14.0) 20.8 SEC (11.7-14.0) Prothromb Time International Ratio 1.6 (0.8-1.1) 1.8 (0.8-1.1) Sodium Level 147 mmol/L (136-145) 143 mmol/L (136-145) Potassium Level 4.1 mmol/L (3.5-5.1) 3.5 mmol/L (3.5-5.1) Chloride Level 111 mmol/L (98-107) 112 mmol/L (98-107) Carbon Dioxide Level 27 mmol/L (21-32) 22 mmol/L (21-32) Anion Gap 9 (6-14) 9 (6-14) Blood Urea Nitrogen 11 mg/dL (8-26) 8 mg/dL (8-26) Creatinine 0.9 mg/dL (0.7-1.3) 0.6 mg/dL (0.7-1.3) Estimated GFR (Cockcroft-Gault) 87.3 139.4 BUN/Creatinine Ratio 12 (6-20) 13 (6-20) Glucose Level 103 mg/dL (70-99) 84 mg/dL (70-99) Calcium Level 9.0 mg/dL (8.5-10.1) 7.9 mg/dL (8.5-10.1) Magnesium Level 1.9 mg/dL (1.8-2.4) Total Bilirubin 2.7 mg/dL (0.2-1.0) 2.6 mg/dL (0.2-1.0) Aspartate Amino Transf (AST/SGOT) 64 U/L (15-37) 47 U/L (15-37) Alanine Aminotransferase (ALT/SGPT) 54 U/L (16-63) 40 U/L (16-63) Alkaline Phosphatase 118 U/L (46-116) 81 U/L (46-116) Ammonia 122 mcmol/L (11-34) Troponin I Quantitative < 0.017 ng/mL (0.000-0.055) JI-Nqb-D-Type Natriuretic Peptide 35 pg/mL (0-124) Total Protein 7.2 g/dL (6.4-8.2) 5.7 g/dL (6.4-8.2) Albumin 2.6 g/dL (3.4-5.0) 1.9 g/dL (3.4-5.0) Albumin/Globulin Ratio 0.6 (1.0-1.7) 0.5 (1.0-1.7) Tumor Marker Alpha Fetoprotein 3.0 ng/mL (0.0-8.3) Nasal Screen MRSA (PCR) Negative (Negative) Laboratory Tests Test 01/31/19 05:17 White Blood Count 3.6 x10^3/uL (4.0-11.0) Red Blood Count 3.24 x10^6/uL (4.30-5.70) Hemoglobin 11.2 g/dL (13.0-17.5) Hematocrit 31.7 % (39.0-53.0) Mean Corpuscular Volume 98 fL (79-100) Mean Corpuscular Hemoglobin 34 pg (25-35) Mean Corpuscular Hemoglobin Concent 35 g/dL (31-37) Red Cell Distribution Width 15.1 % (11.5-14.5) Platelet Count 74 x10^3/uL (140-400) Neutrophils (%) (Auto) 31 % (31-73) Lymphocytes (%) (Auto) 53 % (24-48) Monocytes (%) (Auto) 11 % (0-9) Eosinophils (%) (Auto) 4 % (0-3) Basophils (%) (Auto) 1 % (0-3) Neutrophils # (Auto) 1.1 x10^3uL (1.8-7.7) Lymphocytes # (Auto) 1.9 x10^3/uL (1.0-4.8) Monocytes # (Auto) 0.4 x10^3/uL (0.0-1.1) Eosinophils # (Auto) 0.1 x10^3/uL (0.0-0.7) Basophils # (Auto) 0.0 x10^3/uL (0.0-0.2) Prothrombin Time 20.8 SEC (11.7-14.0) Prothromb Time International Ratio 1.8 (0.8-1.1) Sodium Level 143 mmol/L (136-145) Potassium Level 3.5 mmol/L (3.5-5.1) Chloride Level 112 mmol/L (98-107) Carbon Dioxide Level 22 mmol/L (21-32) Anion Gap 9 (6-14) Blood Urea Nitrogen 8 mg/dL (8-26) Creatinine 0.6 mg/dL (0.7-1.3) Estimated GFR (Cockcroft-Gault) 139.4 BUN/Creatinine Ratio 13 (6-20) Glucose Level 84 mg/dL (70-99) Calcium Level 7.9 mg/dL (8.5-10.1) Total Bilirubin 2.6 mg/dL (0.2-1.0) Aspartate Amino Transf (AST/SGOT) 47 U/L (15-37) Alanine Aminotransferase (ALT/SGPT) 40 U/L (16-63) Alkaline Phosphatase 81 U/L (46-116) Total Protein 5.7 g/dL (6.4-8.2) Albumin 1.9 g/dL (3.4-5.0) Albumin/Globulin Ratio 0.5 (1.0-1.7) Medications Current Medications Lactulose (Lactulose) 30 gm 1X ONCE PO Last administered on 01/30/19at 02:58; Start 01/30/19 at 02:45; Stop 3/22/19 at 02:46; Status DC Lorazepam (Ativan) 2 mg 1X ONCE IV Last administered on 01/30/19 03:33; Start 01/30/19 at 03:15; Stop 01/30/19 at 03:16; Status DC Ondansetron HCl (Zofran) 4 mg PRN Q8HRS PRN IV NAUSEA/VOMITING; Start 01/30/19 at 04:45; Stop 01/31/19 at 04:44; Status DC Sodium Chloride 1,000 ml @ 125 mls/hr Q8H IV Last administered on 01/30/19 20 :14; Start 01/30/19 at 04:45; Stop 01/31/19 at 04:44; Status DC Furosemide (Lasix) 40 mg DAILY PO Last administered on 01/31/19 09:54; Start 01/30/19 at 09:00 Lactulose (Lactulose) 30 gm TID PO Last administered on 01/31/19 09:55; Start 01/30/19 at 09:00 Pantoprazole Sodium (Protonix) 40 mg DAILYAC PO Last administered on 01/31/19 09:55; Start 01/30/19 at 09:00 Spironolactone (Aldactone) 50 mg DAILY PO Last administered on 01/31/19 09:54 ; Start 01/30/19 at 09:00 Lactulose (LACTULOSE 300ML for RECTAL) 200 gm PRN Q6HRS PRN SC ELEVATED AMMONIA ; Start 01/30/19 at 08:30 Lorazepam (Ativan) 1 mg 1X ONCE IV Last administered on 01/30/19 17:33; Start 01/30/19 at 17:30; Stop 01/30/19 at 17:31; Status DC Lorazepam (Ativan) 1 mg 1X PRN PRN IV ANXIETY Last administered on 01/30/19 17 :44; Start 01/30/19 at 17:00 Sodium Chloride 1,000 ml @ 100 mls/hr Q10H IV Last administered on 01/31/19 07:30; Start 01/30/19 at 23:15 Lorazepam (Ativan) 1 mg PRN Q4HRS PRN IV ANXIETY / AGITATION; Start 01/30/19 at 23:15 Tramadol HCl (Ultram) 50 mg PRN Q6HRS PRN PO PAIN Last administered on at 09:55; Start 01/30/19 at 23:15 Lactulose (Lactulose) 20 gm QID PO ; Start 01/31/19 at 10:00 Active Scripts Active Reported Spironolactone 50 Mg Tablet 1 Tab PO DAILY Protonix (Pantoprazole Sodium) 20 Mg Tablet.dr 1 Tab PO DAILY Lactulose 20 Gm/30 Ml Solution 30 Gm PO TID Furosemide 40 Mg Tablet 1 Tab PO DAILY Vitals/I & O Vital Sign - Last 24 Hours 01/30/19 01/30/19 01/30/19 01/30/19 15:00 19:53 20:00 23:00 Temp 97.9 98.6 98.6 97.9 98.6 98.6 Pulse 79 82 73 Resp 16 16 16 B/P (MAP) 139/70 (93) 133/80 (97) 118/58 (78) Pulse Ox 99 100 100 O2 Delivery Room Air Room Air Room Air Room Air 01/30/19 01/31/19 01/31/19 01/31/19 23:23 03:45 07:00 08:00 Temp 98.3 97.5 98.3 97.5 Pulse 80 56 Resp 20 16 16 B/P (MAP) 92/59 (70) 106/54 (71) Pulse Ox 98 96 O2 Delivery Room Air Room Air Room Air Room Air 01/31/19 01/31/19 01/31/19 09:55 10:55 10:56 Temp 97.8 97.8 Pulse 61 Resp 17 18 20 B/P (MAP) 106/61 (76) Pulse Ox 97 O2 Delivery Room Air Room Air Room Air Intake and Output 01/30/19 01/30/19 01/31/19 15:00 23:00 07:00 Intake Total 0 ml 800 ml Output Total 600 ml Balance 0 ml -600 ml 800 ml ALONDRA TRIPATHI MD Jan 31, 2019 12:48
[2019-01-31] MEDS ORDERED: ONDANSETRON PF 4 MG/2 ML VIAL. IV PRN (13:00)
[2019-01-31] MEDS ORDERED: ONDANSETRON ODT 4 MG TAB.RAPDIS. PO PRN (13:00)
--- NOTE | 2019-01-31 14:33 | PDOC ---
G I PROGRESS NOTE Reason for Follow-up Cirrhosis/confusion Subjective Patient still confused Physical Exam Lungs clear CV S1 S2 ABD +BS, soft, mildly distended Review of Relevant I have reviewed the following items kerwin (where applicable) has been applied. Labs Laboratory Tests Test 01/30/19 02:30 01/30/19 06:30 01/31/19 05:17 White Blood Count 4.6 x10^3/uL (4.0-11.0) 3.6 x10^3/uL (4.0-11.0) Red Blood Count 3.58 x10^6/uL (4.30-5.70) 3.24 x10^6/uL (4.30-5.70) Hemoglobin 11.7 g/dL (13.0-17.5) 11.2 g/dL (13.0-17.5) Hematocrit 35.3 % (39.0-53.0) 31.7 % (39.0-53.0) Mean Corpuscular Volume 99 fL (79-100) 98 fL (79-100) Mean Corpuscular Hemoglobin 33 pg (25-35) 34 pg (25-35) Mean Corpuscular Hemoglobin Concent 33 g/dL (31-37) 35 g/dL (31-37) Red Cell Distribution Width 15.5 % (11.5-14.5) 15.1 % (11.5-14.5) Platelet Count 85 x10^3/uL (140-400) 74 x10^3/uL (140-400) Neutrophils (%) (Auto) 53 % (31-73) 31 % (31-73) Lymphocytes (%) (Auto) 33 % (24-48) 53 % (24-48) Monocytes (%) (Auto) 12 % (0-9) 11 % (0-9) Eosinophils (%) (Auto) 1 % (0-3) 4 % (0-3) Basophils (%) (Auto) 1 % (0-3) 1 % (0-3) Neutrophils # (Auto) 2.4 x10^3uL (1.8-7.7) 1.1 x10^3uL (1.8-7.7) Lymphocytes # (Auto) 1.5 x10^3/uL (1.0-4.8) 1.9 x10^3/uL (1.0-4.8) Monocytes # (Auto) 0.5 x10^3/uL (0.0-1.1) 0.4 x10^3/uL (0.0-1.1) Eosinophils # (Auto) 0.1 x10^3/uL (0.0-0.7) 0.1 x10^3/uL (0.0-0.7) Basophils # (Auto) 0.0 x10^3/uL (0.0-0.2) 0.0 x10^3/uL (0.0-0.2) Prothrombin Time 18.3 SEC (11.7-14.0) 20.8 SEC (11.7-14.0) Prothromb Time International Ratio 1.6 (0.8-1.1) 1.8 (0.8-1.1) Sodium Level 147 mmol/L (136-145) 143 mmol/L (136-145) Potassium Level 4.1 mmol/L (3.5-5.1) 3.5 mmol/L (3.5-5.1) Chloride Level 111 mmol/L (98-107) 112 mmol/L (98-107) Carbon Dioxide Level 27 mmol/L (21-32) 22 mmol/L (21-32) Anion Gap 9 (6-14) 9 (6-14) Blood Urea Nitrogen 11 mg/dL (8-26) 8 mg/dL (8-26) Creatinine 0.9 mg/dL (0.7-1.3) 0.6 mg/dL (0.7-1.3) Estimated GFR (Cockcroft-Gault) 87.3 139.4 BUN/Creatinine Ratio 12 (6-20) 13 (6-20) Glucose Level 103 mg/dL (70-99) 84 mg/dL (70-99) Calcium Level 9.0 mg/dL (8.5-10.1) 7.9 mg/dL (8.5-10.1) Magnesium Level 1.9 mg/dL (1.8-2.4) Total Bilirubin 2.7 mg/dL (0.2-1.0) 2.6 mg/dL (0.2-1.0) Aspartate Amino Transf (AST/SGOT) 64 U/L (15-37) 47 U/L (15-37) Alanine Aminotransferase (ALT/SGPT) 54 U/L (16-63) 40 U/L (16-63) Alkaline Phosphatase 118 U/L (46-116) 81 U/L (46-116) Ammonia 122 mcmol/L (11-34) Troponin I Quantitative < 0.017 ng/mL (0.000-0.055) KV-Dsv-V-Type Natriuretic Peptide 35 pg/mL (0-124) Total Protein 7.2 g/dL (6.4-8.2) 5.7 g/dL (6.4-8.2) Albumin 2.6 g/dL (3.4-5.0) 1.9 g/dL (3.4-5.0) Albumin/Globulin Ratio 0.6 (1.0-1.7) 0.5 (1.0-1.7) Tumor Marker Alpha Fetoprotein 3.0 ng/mL (0.0-8.3) Nasal Screen MRSA (PCR) Negative (Negative) Laboratory Tests Test 01/31/19 05:17 White Blood Count 3.6 x10^3/uL (4.0-11.0) Red Blood Count 3.24 x10^6/uL (4.30-5.70) Hemoglobin 11.2 g/dL (13.0-17.5) Hematocrit 31.7 % (39.0-53.0) Mean Corpuscular Volume 98 fL (79-100) Mean Corpuscular Hemoglobin 34 pg (25-35) Mean Corpuscular Hemoglobin Concent 35 g/dL (31-37) Red Cell Distribution Width 15.1 % (11.5-14.5) Platelet Count 74 x10^3/uL (140-400) Neutrophils (%) (Auto) 31 % (31-73) Lymphocytes (%) (Auto) 53 % (24-48) Monocytes (%) (Auto) 11 % (0-9) Eosinophils (%) (Auto) 4 % (0-3) Basophils (%) (Auto) 1 % (0-3) Neutrophils # (Auto) 1.1 x10^3uL (1.8-7.7) Lymphocytes # (Auto) 1.9 x10^3/uL (1.0-4.8) Monocytes # (Auto) 0.4 x10^3/uL (0.0-1.1) Eosinophils # (Auto) 0.1 x10^3/uL (0.0-0.7) Basophils # (Auto) 0.0 x10^3/uL (0.0-0.2) Prothrombin Time 20.8 SEC (11.7-14.0) Prothromb Time International Ratio 1.8 (0.8-1.1) Sodium Level 143 mmol/L (136-145) Potassium Level 3.5 mmol/L (3.5-5.1) Chloride Level 112 mmol/L (98-107) Carbon Dioxide Level 22 mmol/L (21-32) Anion Gap 9 (6-14) Blood Urea Nitrogen 8 mg/dL (8-26) Creatinine 0.6 mg/dL (0.7-1.3) Estimated GFR (Cockcroft-Gault) 139.4 BUN/Creatinine Ratio 13 (6-20) Glucose Level 84 mg/dL (70-99) Calcium Level 7.9 mg/dL (8.5-10.1) Total Bilirubin 2.6 mg/dL (0.2-1.0) Aspartate Amino Transf (AST/SGOT) 47 U/L (15-37) Alanine Aminotransferase (ALT/SGPT) 40 U/L (16-63) Alkaline Phosphatase 81 U/L (46-116) Total Protein 5.7 g/dL (6.4-8.2) Albumin 1.9 g/dL (3.4-5.0) Albumin/Globulin Ratio 0.5 (1.0-1.7) Medications Current Medications Lactulose (Lactulose) 30 gm 1X ONCE PO Last administered on 01/30/19at 02:58; Start 01/30/19 at 02:45; Stop 01/30/19 at 02:46; Status DC Lorazepam (Ativan) 2 mg 1X ONCE IV Last administered on 01/30/19at 03:33; Start 01/30/19 at 03:15; Stop 01/30/19 at 03:16; Status DC Ondansetron HCl (Zofran) 4 mg PRN Q8HRS PRN IV NAUSEA/VOMITING; Start 01/30/19 at 04:45; Stop 01/31/19 at 04:44; Status DC Sodium Chloride 1,000 ml @ 125 mls/hr Q8H IV Last administered on 01/30/19 20 :14; Start 01/30/19 at 04:45; Stop 01/31/19 at 04:44; Status DC Furosemide (Lasix) 40 mg DAILY PO Last administered on 01/31/19 09:54; Start 01/30/19 at 09:00 Lactulose (Lactulose) 30 gm TID PO Last administered on 01/31/19 09:55; Start 01/30/19 at 09:00 Pantoprazole Sodium (Protonix) 40 mg DAILYAC PO Last administered on 01/31/19 09:55; Start 01/30/19 at 09:00 Spironolactone (Aldactone) 50 mg DAILY PO Last administered on 01/31/19 09:54 ; Start 01/30/19 at 09:00 Lactulose (LACTULOSE 300ML for RECTAL) 200 gm PRN Q6HRS PRN OR ELEVATED AMMONIA ; Start 01/30/19 at 08:30 Lorazepam (Ativan) 1 mg 1X ONCE IV Last administered on 01/30/19 17:33; Start 01/30/19 at 17:30; Stop 01/30/19 at 17:31; Status DC Lorazepam (Ativan) 1 mg 1X PRN PRN IV ANXIETY Last administered on 01/30/19at 17 :44; Start 01/30/19 at 17:00 Sodium Chloride 1,000 ml @ 100 mls/hr Q10H IV Last administered on 01/31/19 07:30; Start 01/30/19 at 23:15; Stop 01/31/19 at 12:49; Status DC Lorazepam (Ativan) 1 mg PRN Q4HRS PRN IV ANXIETY / AGITATION; Start 01/30/19 at 23:15 Tramadol HCl (Ultram) 50 mg PRN Q6HRS PRN PO PAIN Last administered on 09:55; Start 01/30/19 at 23:15 Lactulose (Lactulose) 20 gm QID PO ; Start 01/31/19 at 10:00; Stop 01/31/19 at 12:49; Status DC Ondansetron HCl (Zofran) 4 mg PRN Q6HRS PRN IV NAUSEA/VOMITING; Start 01/31/19 at 13:00 Ondansetron HCl (Zofran Odt) 4 mg PRN Q6HRS PRN PO NAUSEA/VOMITING; Start 01/31 at 13:00 Active Scripts Active Reported Spironolactone 50 Mg Tablet 1 Tab PO DAILY Protonix (Pantoprazole Sodium) 20 Mg Tablet.dr 1 Tab PO DAILY Lactulose 20 Gm/30 Ml Solution 30 Gm PO TID Furosemide 40 Mg Tablet 1 Tab PO DAILY Vitals/I & O Vital Sign - Last 24 Hours 01/30/19 01/30/19 01/30/19 01/30/19 15:00 19:53 20:00 23:00 Temp 97.9 98.6 98.6 97.9 98.6 98.6 Pulse 79 82 73 Resp 16 16 16 B/P (MAP) 139/70 (93) 133/80 (97) 118/58 (78) Pulse Ox 99 100 100 O2 Delivery Room Air Room Air Room Air Room Air 01/30/19 01/31/19 01/31/19 01/31/19 23:23 03:45 07:00 08:00 Temp 98.3 97.5 98.3 97.5 Pulse 80 56 Resp 20 16 16 B/P (MAP) 92/59 (70) 106/54 (71) Pulse Ox 98 96 O2 Delivery Room Air Room Air Room Air Room Air 01/31/19 01/31/19 01/31/19 09:55 10:55 10:56 Temp 97.8 97.8 Pulse 61 Resp 17 18 20 B/P (MAP) 106/61 (76) Pulse Ox 97 O2 Delivery Room Air Room Air Room Air Intake and Output 01/30/19 01/30/19 01/31/19 14:59 22:59 06:59 Intake Total 0 ml 800 ml Output Total 600 ml Balance 0 ml -600 ml 800 ml Problem List Problems Medical Problems: (1) Hepatic encephalopathy Status: Acute Assessment Hepatic encephalopathy- with cirrhosis, life expectancy 2 years at best without transplant, medical therapy for now. AKOSUA ANGELA MD Jan 31, 2019 14:33
[2019-01-31 14:41] VITALS: BP 128/69
[2019-01-31 19:15] VITALS: BP 121/79
[2019-01-31 23:39] VITALS: BP 125/68
[2019-02-01 03:37] VITALS: BP 120/67
[2019-02-01 04:01] LABS: BASO % 1 % (0-3); EOS # 0.2 x10^3/uL (0.0-0.7); EOS % 4 % (0-3); HEMATOCRIT 31.8 % (39.0-53.0); HEMOGLOBIN 10.9 g/dL (13.0-17.5); LYMPH # 1.7 x10^3/uL (1.0-4.8); LYMPH % 43 % (24-48); MEAN CORPUSCULAR HEMOGLOBIN 33 pg (25-35); MEAN CORPUSCULAR HGB CONC 34 g/dL (31-37); MEAN CORPUSCULAR VOLUME 98 fL (79-100); MONO # 0.6 x10^3/uL (0.0-1.1); MONO % 14 % (0-9); NEUT # 1.5 x10^3uL (1.8-7.7); NEUT % 38 % (31-73); PLATELET COUNT 79 x10^3/uL (140-400); RED BLOOD COUNT 3.25 x10^6/uL (4.30-5.70); RED CELL DISTRIBUTION WIDTH 15.1 % (11.5-14.5)
[2019-02-01 04:23] LABS: PROTHROMBIN TIME PATIENT 18.7 SEC (11.7-14.0)
[2019-02-01 04:27] LABS: ALBUMIN 1.9 g/dL (3.4-5.0); ALBUMIN/GLOBULIN RATIO 0.5 (1.0-1.7); CALCIUM 7.6 mg/dL (8.5-10.1); CREATININE 0.8 mg/dL (0.7-1.3); POTASSIUM 3.8 mmol/L (3.5-5.1); TOTAL BILIRUBIN 1.6 mg/dL (0.2-1.0); TOTAL PROTEIN 5.8 g/dL (6.4-8.2)
[2019-02-01 07:00] VITALS: BP_SYST 114; BP_SYST 57; BP_DIAS 51; BP_DIAS 57
[2019-02-01] MEDS: PANTOPRAZOLE 40 MG TABLET.DR. PO SCH (09:04)
[2019-02-01] MEDS: LACTULOSE 20 GM/30 ML SOLUTION. PO SCH (09:04)
[2019-02-01] MEDS: FUROSEMIDE 40 MG TABLET. PO SCH (09:05)
[2019-02-01] MEDS: SPIRONOLACTONE 25 MG TABLET PO SCH (09:05)
[2019-02-01 11:00] VITALS: BP 111/58
--- NOTE | 2019-02-01 11:38 | PDOC ---
PROGRESS NOTES Chief Complaint Chief Complaint Acute Hepatic encephalopathy, resolved -TIPS patent Advanced liver cirrhosis History hep C status post treatment-Active again?-Follows with [facility] elevated Ammonia, 122 now 94 NORMAL AFP Anemia - 2/2 liver disease. 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, Inmate InciDental cholelithiasis History of Present Illness History of Present Illness He is back to baseline terms of mentation but still slow. Oriented to self and place and a little bit to time Guards at bedside Ammonia down to 94 from 1-2 on admission Did need an enema yesterday even while on lactulose AFP is normal Ultrasound shows patent TIPS Incidental cholelithiasis- asymptomatic I did touch base in terms of prognosis poor, recurrences of confusion etc. - GI gives a life expectancy of 2 years at its best He is looking at getting out of shelter March 02, 2019, and follows with [facility] for hep C treatment Plan: Continue lactulose, recheck ammonia tomorrow Back to shelter tomorrow-they're able to give lactulose and recheck ammonia levels there Upgrade to GI soft Follow-up [facility] for hep C treatment Vitals Vitals Vital Signs Date Time Temp Pulse Resp B/P (MAP) Pulse Ox O2 Delivery O2 Flow Rate FiO2 02/01/19 11:00 98.2 62 16 111/58 (75) 100 Room Air 98.2 Physical Exam General: Oriented X3, Cooperative, moderate distress, Other (slow to speech) Heart: Regular rate, Normal S1, Normal S2 Lungs: Clear Abdomen: Normal bowel sounds, Soft, No tenderness, No hepatosplenomegaly, No masses Extremities: No clubbing, No cyanosis, No edema, Normal pulses, No tenderness/ swelling Skin: No rashes, No breakdown, No significant lesion Labs LABS Laboratory Tests Test 02/01/19 03:15 White Blood Count 4.0 x10^3/uL (4.0-11.0) Red Blood Count 3.25 x10^6/uL (4.30-5.70) Hemoglobin 10.9 g/dL (13.0-17.5) Hematocrit 31.8 % (39.0-53.0) Mean Corpuscular Volume 98 fL (79-100) Mean Corpuscular Hemoglobin 33 pg (25-35) Mean Corpuscular Hemoglobin Concent 34 g/dL (31-37) Red Cell Distribution Width 15.1 % (11.5-14.5) Platelet Count 79 x10^3/uL (140-400) Neutrophils (%) (Auto) 38 % (31-73) Lymphocytes (%) (Auto) 43 % (24-48) Monocytes (%) (Auto) 14 % (0-9) Eosinophils (%) (Auto) 4 % (0-3) Basophils (%) (Auto) 1 % (0-3) Neutrophils # (Auto) 1.5 x10^3uL (1.8-7.7) Lymphocytes # (Auto) 1.7 x10^3/uL (1.0-4.8) Monocytes # (Auto) 0.6 x10^3/uL (0.0-1.1) Eosinophils # (Auto) 0.2 x10^3/uL (0.0-0.7) Basophils # (Auto) 0.0 x10^3/uL (0.0-0.2) Prothrombin Time 18.7 SEC (11.7-14.0) Prothromb Time International Ratio 1.6 (0.8-1.1) Sodium Level 140 mmol/L (136-145) Potassium Level 3.8 mmol/L (3.5-5.1) Chloride Level 109 mmol/L (98-107) Carbon Dioxide Level 24 mmol/L (21-32) Anion Gap 7 (6-14) Blood Urea Nitrogen 5 mg/dL (8-26) Creatinine 0.8 mg/dL (0.7-1.3) Estimated GFR (Cockcroft-Gault) 100.0 BUN/Creatinine Ratio 6 (6-20) Glucose Level 109 mg/dL (70-99) Calcium Level 7.6 mg/dL (8.5-10.1) Total Bilirubin 1.6 mg/dL (0.2-1.0) Aspartate Amino Transf (AST/SGOT) 51 U/L (15-37) Alanine Aminotransferase (ALT/SGPT) 43 U/L (16-63) Alkaline Phosphatase 100 U/L (46-116) Ammonia 91 mcmol/L (11-34) Total Protein 5.8 g/dL (6.4-8.2) Albumin 1.9 g/dL (3.4-5.0) Albumin/Globulin Ratio 0.5 (1.0-1.7) Review of Systems Review of Systems Ankles hurt from the shackles, otherwise rest of ROS 14 point negative Assessment and Plan Assessmemt and Plan Problems Medical Problems: (1) Hepatic encephalopathy Status: Acute Comment Review of Relevant I have reviewed the following items kerwin (where applicable) has been applied. Labs Laboratory Tests Test 01/31/19 05:17 02/01/19 03:15 White Blood Count 3.6 x10^3/uL (4.0-11.0) 4.0 x10^3/uL (4.0-11.0) Red Blood Count 3.24 x10^6/uL (4.30-5.70) 3.25 x10^6/uL (4.30-5.70) Hemoglobin 11.2 g/dL (13.0-17.5) 10.9 g/dL (13.0-17.5) Hematocrit 31.7 % (39.0-53.0) 31.8 % (39.0-53.0) Mean Corpuscular Volume 98 fL (79-100) 98 fL (79-100) Mean Corpuscular Hemoglobin 34 pg (25-35) 33 pg (25-35) Mean Corpuscular Hemoglobin Concent 35 g/dL (31-37) 34 g/dL (31-37) Red Cell Distribution Width 15.1 % (11.5-14.5) 15.1 % (11.5-14.5) Platelet Count 74 x10^3/uL (140-400) 79 x10^3/uL (140-400) Neutrophils (%) (Auto) 31 % (31-73) 38 % (31-73) Lymphocytes (%) (Auto) 53 % (24-48) 43 % (24-48) Monocytes (%) (Auto) 11 % (0-9) 14 % (0-9) Eosinophils (%) (Auto) 4 % (0-3) 4 % (0-3) Basophils (%) (Auto) 1 % (0-3) 1 % (0-3) Neutrophils # (Auto) 1.1 x10^3uL (1.8-7.7) 1.5 x10^3uL (1.8-7.7) Lymphocytes # (Auto) 1.9 x10^3/uL (1.0-4.8) 1.7 x10^3/uL (1.0-4.8) Monocytes # (Auto) 0.4 x10^3/uL (0.0-1.1) 0.6 x10^3/uL (0.0-1.1) Eosinophils # (Auto) 0.1 x10^3/uL (0.0-0.7) 0.2 x10^3/uL (0.0-0.7) Basophils # (Auto) 0.0 x10^3/uL (0.0-0.2) 0.0 x10^3/uL (0.0-0.2) Prothrombin Time 20.8 SEC (11.7-14.0) 18.7 SEC (11.7-14.0) Prothromb Time International Ratio 1.8 (0.8-1.1) 1.6 (0.8-1.1) Sodium Level 143 mmol/L (136-145) 140 mmol/L (136-145) Potassium Level 3.5 mmol/L (3.5-5.1) 3.8 mmol/L (3.5-5.1) Chloride Level 112 mmol/L (98-107) 109 mmol/L (98-107) Carbon Dioxide Level 22 mmol/L (21-32) 24 mmol/L (21-32) Anion Gap 9 (6-14) 7 (6-14) Blood Urea Nitrogen 8 mg/dL (8-26) 5 mg/dL (8-26) Creatinine 0.6 mg/dL (0.7-1.3) 0.8 mg/dL (0.7-1.3) Estimated GFR (Cockcroft-Gault) 139.4 100.0 BUN/Creatinine Ratio 13 (6-20) 6 (6-20) Glucose Level 84 mg/dL (70-99) 109 mg/dL (70-99) Calcium Level 7.9 mg/dL (8.5-10.1) 7.6 mg/dL (8.5-10.1) Total Bilirubin 2.6 mg/dL (0.2-1.0) 1.6 mg/dL (0.2-1.0) Aspartate Amino Transf (AST/SGOT) 47 U/L (15-37) 51 U/L (15-37) Alanine Aminotransferase (ALT/SGPT) 40 U/L (16-63) 43 U/L (16-63) Alkaline Phosphatase 81 U/L (46-116) 100 U/L (46-116) Total Protein 5.7 g/dL (6.4-8.2) 5.8 g/dL (6.4-8.2) Albumin 1.9 g/dL (3.4-5.0) 1.9 g/dL (3.4-5.0) Albumin/Globulin Ratio 0.5 (1.0-1.7) 0.5 (1.0-1.7) Ammonia 91 mcmol/L (11-34) Laboratory Tests Test 02/01/19 03:15 White Blood Count 4.0 x10^3/uL (4.0-11.0) Red Blood Count 3.25 x10^6/uL (4.30-5.70) Hemoglobin 10.9 g/dL (13.0-17.5) Hematocrit 31.8 % (39.0-53.0) Mean Corpuscular Volume 98 fL (79-100) Mean Corpuscular Hemoglobin 33 pg (25-35) Mean Corpuscular Hemoglobin Concent 34 g/dL (31-37) Red Cell Distribution Width 15.1 % (11.5-14.5) Platelet Count 79 x10^3/uL (140-400) Neutrophils (%) (Auto) 38 % (31-73) Lymphocytes (%) (Auto) 43 % (24-48) Monocytes (%) (Auto) 14 % (0-9) Eosinophils (%) (Auto) 4 % (0-3) Basophils (%) (Auto) 1 % (0-3) Neutrophils # (Auto) 1.5 x10^3uL (1.8-7.7) Lymphocytes # (Auto) 1.7 x10^3/uL (1.0-4.8) Monocytes # (Auto) 0.6 x10^3/uL (0.0-1.1) Eosinophils # (Auto) 0.2 x10^3/uL (0.0-0.7) Basophils # (Auto) 0.0 x10^3/uL (0.0-0.2) Prothrombin Time 18.7 SEC (11.7-14.0) Prothromb Time International Ratio 1.6 (0.8-1.1) Sodium Level 140 mmol/L (136-145) Potassium Level 3.8 mmol/L (3.5-5.1) Chloride Level 109 mmol/L (98-107) Carbon Dioxide Level 24 mmol/L (21-32) Anion Gap 7 (6-14) Blood Urea Nitrogen 5 mg/dL (8-26) Creatinine 0.8 mg/dL (0.7-1.3) Estimated GFR (Cockcroft-Gault) 100.0 BUN/Creatinine Ratio 6 (6-20) Glucose Level 109 mg/dL (70-99) Calcium Level 7.6 mg/dL (8.5-10.1) Total Bilirubin 1.6 mg/dL (0.2-1.0) Aspartate Amino Transf (AST/SGOT) 51 U/L (15-37) Alanine Aminotransferase (ALT/SGPT) 43 U/L (16-63) Alkaline Phosphatase 100 U/L (46-116) Ammonia 91 mcmol/L (11-34) Total Protein 5.8 g/dL (6.4-8.2) Albumin 1.9 g/dL (3.4-5.0) Albumin/Globulin Ratio 0.5 (1.0-1.7) Medications Current Medications Lactulose (Lactulose) 30 gm 1X ONCE PO Last administered on 01/30/19at 02:58; Start 01/30/19 at 02:45; Stop 01/30/19 at 02:46; Status DC Lorazepam (Ativan) 2 mg 1X ONCE IV Last administered on 01/30/19at 03:33; Start 01/30/19 at 03:15; Stop 01/30/19 at 03:16; Status DC Ondansetron HCl (Zofran) 4 mg PRN Q8HRS PRN IV NAUSEA/VOMITING; Start 01/30/19 at 04:45; Stop 01/31/19 at 04:44; Status DC Sodium Chloride 1,000 ml @ 125 mls/hr Q8H IV Last administered on 01/30/19at 20 :14; Start 01/30/19 at 04:45; Stop 01/31/19 at 04:44; Status DC Furosemide (Lasix) 40 mg DAILY PO Last administered on 02/01/19 09:05; Start 01/30/19 at 09:00 Lactulose (Lactulose) 30 gm TID PO Last administered on 02/01/19 09:04; Start 01/30/19 at 09:00 Pantoprazole Sodium (Protonix) 40 mg DAILYAC PO Last administered on 02/01/19 09:04; Start 01/30/19 at 09:00 Spironolactone (Aldactone) 50 mg DAILY PO Last administered on 02/01/19 09:05 ; Start 01/30/19 at 09:00 Lactulose (LACTULOSE 300ML for RECTAL) 200 gm PRN Q6HRS PRN ID ELEVATED AMMONIA Last administered on 01/31/19 21:55; Start 01/30/19 at 08:30 Lorazepam (Ativan) 1 mg 1X ONCE IV Last administered on 01/30/19 17:33; Start 01/30/19 at 17:30; Stop 01/30/19 at 17:31; Status DC Lorazepam (Ativan) 1 mg 1X PRN PRN IV ANXIETY Last administered on 01/30/19 17 :44; Start 01/30/19 at 17:00 Sodium Chloride 1,000 ml @ 100 mls/hr Q10H IV Last administered on 01/31/19 07:30; Start 01/30/19 at 23:15; Stop 01/31/19 at 12:49; Status DC Lorazepam (Ativan) 1 mg PRN Q4HRS PRN IV ANXIETY / AGITATION; Start 01/30/19 at 23:15 Tramadol HCl (Ultram) 50 mg PRN Q6HRS PRN PO PAIN Last administered on 09:55; Start 01/30/19 at 23:15 Lactulose (Lactulose) 20 gm QID PO ; Start 01/31/19 at 10:00; Stop 01/31/19 at 12:49; Status DC Ondansetron HCl (Zofran) 4 mg PRN Q6HRS PRN IV NAUSEA/VOMITING; Start 01/31/19 at 13:00 Ondansetron HCl (Zofran Odt) 4 mg PRN Q6HRS PRN PO NAUSEA/VOMITING; Start 3/23 /19 at 13:00 Active Scripts Active Reported Spironolactone 50 Mg Tablet 1 Tab PO DAILY Protonix (Pantoprazole Sodium) 20 Mg Tablet.dr 1 Tab PO DAILY Lactulose 20 Gm/30 Ml Solution 30 Gm PO TID Furosemide 40 Mg Tablet 1 Tab PO DAILY Vitals/I & O Vital Sign - Last 24 Hours 01/31/19 01/31/19 01/31/19 01/31/19 14:41 19:15 20:00 23:39 Temp 97.8 98.9 98.2 97.8 98.9 98.2 Pulse 72 84 71 Resp 20 18 20 B/P (MAP) 128/69 (88) 121/79 (93) 125/68 (87) Pulse Ox 97 97 100 O2 Delivery Room Air Room Air Room Air Room Air 02/01/19 02/01/19 02/01/19 02/01/19 03:37 07:00 08:00 11:00 Temp 98.5 98.4 98.2 98.5 98.4 98.2 Pulse 69 69 62 Resp 18 16 16 B/P (MAP) 120/67 (84) 114/57 (76) 111/58 (75) Pulse Ox 97 99 100 O2 Delivery Room Air Room Air Room Air Room Air Intake and Output 01/31/19 01/31/19 02/01/19 15:00 23:00 07:00 Intake Total 480 ml 490 ml 200 ml Balance 480 ml 490 ml 200 ml ALONDRA TRIPATHI MD Feb 01, 2019 11:38
--- NOTE | 2019-02-01 11:42 | PDOC3 ---
Discharge Summary Visit Information Date of Admission: Jan 30, 2019 Date of Discharge: Feb 01, 2019 Admitting Diagnosis Comment: Acute Hepatic encephalopathy -TIPS patent Advanced liver cirrhosis History hep C status post treatment-Active again?-Follows with [facility] elevated Ammonia, 122 down to 94\ NOrmal AFP Anemia - 2/2 liver disease. 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, Inmate InciDental cholelithiasis Final Diagnosis Problems Medical Problems: (1) Hepatic encephalopathy Status: Acute Brief Hospital Course Allergies Allergies Coded Allergies Type Severity Reaction Last Updated Verified No Known Drug Allergies 01/30/19 No Vital Signs Vital Signs Date Time Temp Pulse Resp B/P (MAP) Pulse Ox O2 Delivery O2 Flow Rate FiO2 02/01/19 11:00 98.2 62 16 111/58 (75) 100 Room Air 98.2 Lab Results Laboratory Tests Test 01/31/19 05:17 02/01/19 03:15 White Blood Count 3.6 x10^3/uL (4.0-11.0) 4.0 x10^3/uL (4.0-11.0) Red Blood Count 3.24 x10^6/uL (4.30-5.70) 3.25 x10^6/uL (4.30-5.70) Hemoglobin 11.2 g/dL (13.0-17.5) 10.9 g/dL (13.0-17.5) Hematocrit 31.7 % (39.0-53.0) 31.8 % (39.0-53.0) Mean Corpuscular Volume 98 fL (79-100) 98 fL (79-100) Mean Corpuscular Hemoglobin 34 pg (25-35) 33 pg (25-35) Mean Corpuscular Hemoglobin Concent 35 g/dL (31-37) 34 g/dL (31-37) Red Cell Distribution Width 15.1 % (11.5-14.5) 15.1 % (11.5-14.5) Platelet Count 74 x10^3/uL (140-400) 79 x10^3/uL (140-400) Neutrophils (%) (Auto) 31 % (31-73) 38 % (31-73) Lymphocytes (%) (Auto) 53 % (24-48) 43 % (24-48) Monocytes (%) (Auto) 11 % (0-9) 14 % (0-9) Eosinophils (%) (Auto) 4 % (0-3) 4 % (0-3) Basophils (%) (Auto) 1 % (0-3) 1 % (0-3) Neutrophils # (Auto) 1.1 x10^3uL (1.8-7.7) 1.5 x10^3uL (1.8-7.7) Lymphocytes # (Auto) 1.9 x10^3/uL (1.0-4.8) 1.7 x10^3/uL (1.0-4.8) Monocytes # (Auto) 0.4 x10^3/uL (0.0-1.1) 0.6 x10^3/uL (0.0-1.1) Eosinophils # (Auto) 0.1 x10^3/uL (0.0-0.7) 0.2 x10^3/uL (0.0-0.7) Basophils # (Auto) 0.0 x10^3/uL (0.0-0.2) 0.0 x10^3/uL (0.0-0.2) Prothrombin Time 20.8 SEC (11.7-14.0) 18.7 SEC (11.7-14.0) Prothromb Time International Ratio 1.8 (0.8-1.1) 1.6 (0.8-1.1) Sodium Level 143 mmol/L (136-145) 140 mmol/L (136-145) Potassium Level 3.5 mmol/L (3.5-5.1) 3.8 mmol/L (3.5-5.1) Chloride Level 112 mmol/L (98-107) 109 mmol/L (98-107) Carbon Dioxide Level 22 mmol/L (21-32) 24 mmol/L (21-32) Anion Gap 9 (6-14) 7 (6-14) Blood Urea Nitrogen 8 mg/dL (8-26) 5 mg/dL (8-26) Creatinine 0.6 mg/dL (0.7-1.3) 0.8 mg/dL (0.7-1.3) Estimated GFR (Cockcroft-Gault) 139.4 100.0 BUN/Creatinine Ratio 13 (6-20) 6 (6-20) Glucose Level 84 mg/dL (70-99) 109 mg/dL (70-99) Calcium Level 7.9 mg/dL (8.5-10.1) 7.6 mg/dL (8.5-10.1) Total Bilirubin 2.6 mg/dL (0.2-1.0) 1.6 mg/dL (0.2-1.0) Aspartate Amino Transf (AST/SGOT) 47 U/L (15-37) 51 U/L (15-37) Alanine Aminotransferase (ALT/SGPT) 40 U/L (16-63) 43 U/L (16-63) Alkaline Phosphatase 81 U/L (46-116) 100 U/L (46-116) Total Protein 5.7 g/dL (6.4-8.2) 5.8 g/dL (6.4-8.2) Albumin 1.9 g/dL (3.4-5.0) 1.9 g/dL (3.4-5.0) Albumin/Globulin Ratio 0.5 (1.0-1.7) 0.5 (1.0-1.7) Ammonia 91 mcmol/L (11-34) Laboratory Tests Test 02/01/19 03:15 White Blood Count 4.0 x10^3/uL (4.0-11.0) Red Blood Count 3.25 x10^6/uL (4.30-5.70) Hemoglobin 10.9 g/dL (13.0-17.5) Hematocrit 31.8 % (39.0-53.0) Mean Corpuscular Volume 98 fL (79-100) Mean Corpuscular Hemoglobin 33 pg (25-35) Mean Corpuscular Hemoglobin Concent 34 g/dL (31-37) Red Cell Distribution Width 15.1 % (11.5-14.5) Platelet Count 79 x10^3/uL (140-400) Neutrophils (%) (Auto) 38 % (31-73) Lymphocytes (%) (Auto) 43 % (24-48) Monocytes (%) (Auto) 14 % (0-9) Eosinophils (%) (Auto) 4 % (0-3) Basophils (%) (Auto) 1 % (0-3) Neutrophils # (Auto) 1.5 x10^3uL (1.8-7.7) Lymphocytes # (Auto) 1.7 x10^3/uL (1.0-4.8) Monocytes # (Auto) 0.6 x10^3/uL (0.0-1.1) Eosinophils # (Auto) 0.2 x10^3/uL (0.0-0.7) Basophils # (Auto) 0.0 x10^3/uL (0.0-0.2) Prothrombin Time 18.7 SEC (11.7-14.0) Prothromb Time International Ratio 1.6 (0.8-1.1) Sodium Level 140 mmol/L (136-145) Potassium Level 3.8 mmol/L (3.5-5.1) Chloride Level 109 mmol/L (98-107) Carbon Dioxide Level 24 mmol/L (21-32) Anion Gap 7 (6-14) Blood Urea Nitrogen 5 mg/dL (8-26) Creatinine 0.8 mg/dL (0.7-1.3) Estimated GFR (Cockcroft-Gault) 100.0 BUN/Creatinine Ratio 6 (6-20) Glucose Level 109 mg/dL (70-99) Calcium Level 7.6 mg/dL (8.5-10.1) Total Bilirubin 1.6 mg/dL (0.2-1.0) Aspartate Amino Transf (AST/SGOT) 51 U/L (15-37) Alanine Aminotransferase (ALT/SGPT) 43 U/L (16-63) Alkaline Phosphatase 100 U/L (46-116) Ammonia 91 mcmol/L (11-34) Total Protein 5.8 g/dL (6.4-8.2) Albumin 1.9 g/dL (3.4-5.0) Albumin/Globulin Ratio 0.5 (1.0-1.7) Brief Hospital Course Mr. Andrews is a 58 old inmate, white male history of hep C, already has tips , advanced liver cirrhosis admitted because was acutely encephalopathic with elevated ammonia levels. Comanagement GI and agreed with management with lactulose. Ammonia down to 94 and mentation back to normal. TIPS is patent based on ultrasound. AFP is normal. They can continue getting that shows recheck pneumonia in [facility] We were not giving rifaXIMIN here. Continue spironolactone and Lasix in [facility] 2 NOTES TODAY Discharge Information Condition at Discharge: Improved, Stable Disposition/Orders: Other ([facility]) Scheduled Furosemide (Furosemide) 40 Mg Tablet, 1 TAB PO DAILY for ukn, #30 Ref 5 ( Reported) Entered as Reported by: LESLI RUVALCABA on 01/30/19737 Last Taken: Unknown Dose on Unknown Date & Time Last Action: Continued on 01/30/19830 by DOLLY SIMENTAL MD Lactulose (Lactulose) 20 Gm/30 Ml Solution, 30 GM PO TID for hepatic enceph, ( Reported) Entered as Reported by: LESLI RUVALCABA on 01/30/19737 Last Taken: Unknown Dose on Unknown Date & Time Last Action: Continued on 01/30/19830 by DOLLY SIMENTAL MD Pantoprazole Sodium (Protonix) 20 Mg Tablet.dr, 1 TAB PO DAILY for GERD, #30 ( Reported) Entered as Reported by: LESLI RUVALCABA on 01/30/19737 Last Taken: Unknown Dose on Unknown Date & Time Last Action: Converted on 01/30/19830 by DOLLY SIMENTAL MD Spironolactone (Spironolactone) 50 Mg Tablet, 1 TAB PO DAILY for ukn, #30 Ref 5 (Reported) Entered as Reported by: LESLI RUVALCABA on 01/30/19737 Last Taken: Unknown Dose on Unknown Date & Time Last Action: Converted on 01/30/19830 by MD DEUCE HATHAWAY CHERRIE Y MD Feb 01, 2019 11:42
--- NOTE | 2019-02-01 12:10 | NUR ---
Received discharge orders on pt. Called report to [facility]iss [facility] at [facility]. Guards are setting up transport. Hospital security notified.
--- NOTE | 2019-02-01 13:20 | NUR ---
Pt discharged in custody [facility].
== END 2019-02-01 13:20 | disposition home or self-care (01) | DRG 442 ==
LOC: ER 02:24 → EEVIPCON 02:24 → 6 SOUTH 04:40
PROVIDERS: ADMIT Family Medicine; ATTEND Family Medicine
DX: K72.00 Acute and subacute hepatic failure without coma (principal); D68.9 Coagulation defect, unspecified; K74.60 Unspecified cirrhosis of liver; I10 Essential (primary) hypertension; B19.20 Unspecified viral hepatitis C without hepatic coma; D64.9 Anemia, unspecified; D69.6 Thrombocytopenia, unspecified; F17.210 Nicotine dependence, cigarettes, uncomplicated; F32.9 Major depressive disorder, single episode, unspecified; K21.9 Gastro-esophageal reflux disease without esophagitis; K80.20 Calculus of gallbladder without cholecystitis without obstruction; Z79.899 Other long term (current) drug therapy; Z90.49 Acquired absence of other specified parts of digestive tract
CPT/HCPCS: 36415; 71250; 74176; 80053; 82105; 82140; 83735; 83880; 84484; 85025; 85610; 87641; 93005; 93976; 96374; J2060; J7030; 99285-25